=== PATIENT | male | born 1955 ===

== ENCOUNTER → 2022-05-24 09:40 | Outpatient (BNVA) | payer MEDICARE, MEDICAID, SELFPAY | PROVIDERS: PCP Internal Medicine; Visit Provider Urology | DX: N40.0 Benign prostatic hyperplasia without lower urinary tract symptoms (principal); R97.20 Elevated prostate specific antigen [PSA] | CPT/HCPCS: Q3014 ==

== ENCOUNTER 2023-04-19 16:09 | Outpatient (REF) | payer MEDICARE, MEDICAID, SELFPAY | END 2023-04-19 16:10 | disposition home or self-care (01) | LOC: HO.LAB 16:09 | PROVIDERS: Visit Provider Urology | DX: R97.20 Elevated prostate specific antigen [PSA] (principal); Z12.5 Encounter for screening for malignant neoplasm of prostate | CPT/HCPCS: 36415; 84153 ==

== ENCOUNTER 2023-05-25 10:42 | Outpatient (AMB) | payer MEDICARE, MEDICAID, SELFPAY ==
--- NOTE | 2023-05-25 10:47 | MHC.OFFVIS ---
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 They are a patient of Dr Lara. He is seen for the following urologic conditions. - lower urinary tract symptoms Yearly review PSA low Continues with finasteride Lower Urinary Tract Symptoms:? Current visit is for?Has been doing well ?Better control of urine ?Minimal nocturia ?PSA fallen since visit.? Current treatment includes?observation - no prior care.? Prostate Symptom Score?09/02 , Moderate (9-19), Bother 4.? Symptoms include?09/02 , incomplete emptying, weak stream, urgency, nocturia (>2), and are progressing.? Results from testing include? renal/bladder us ?Yes ? date ?08/26/2017 ? PVR ?60 ? prostate size ?30 ? PSA?09/02 10.9 - discussed risk of approx 15% for high risk prostate cancer. Given other comorbidities start with 5AR and repreat PSA ?01/30 PSA 2.1, 01/31 1.4, 02/01 1.9, 05/06 1.1, ? Testing at next visit will include?Prostate Symptom Score, bladder scan.? Continue medications. [facility] Medical History (Updated 05/24/22 @ 10:19 by Felipe Merlos MD) Hyperlipidemia HTN (hypertension) Chronic kidney disease BPH (benign prostatic hyperplasia) Nocturia Elevated PSA Review of Systems Const Denies chills and Denies fever(s) Card Reports no additional complaints and Denies syncope Resp Denies cough GI Denies abdominal pain and Denies heartburn Reports as per HPI and Denies change in libido Neuro Denies syncope Psych Denies change in libido Endo Denies change in libido Physical Exam Const General: cooperative, healthy appearing, comfortable and no acute distress Orientation/consciousness: patient oriented x3 HEENT Face and sinus: Yes normal facial exam Mouth: moist mucous membranes Neck Neck: Yes normal visual inspection, Yes full ROM and Yes trachea midline Chest Chest palpation & inspection: normal inspection of the chest Resp Effort & Inspection: normal respiratory effort, able to speak in complete sentences and no respiratory distress GI Inspection: Yes normal to inspection Back/Spine/Pelvis Cervical Spine: normal cervical lordosis Thoracic/Lumbar Spine: thoracic and lumbar spine normal to inspection Skin General skin exam: no rashes or lesions noted Neuro General: patient oriented x3, gait normal, tone normal and moves all extremities Extrem General: Yes normal to inspection and Yes capillary refill normal Office Procedures Post Void Residual Post Residual Void Post Void Residual (PVR): 0 [id number] Void Residual by ultrasound Assessment & Plan Assessment & Plan (1) Elevated PSA: Code(s): R97.20 - Elevated prostate specific antigen [PSA] (2) BPH (benign prostatic hyperplasia): Code(s): N40.0 - Benign prostatic hyperplasia without lower urinary tract symptoms Plan Twelve month follow-up PVR Orders: Orders AMB Post Void Residual by ultrasound Today N40.0 - Benign prostatic hyperplasia without lower urinary tract symptoms Patient Instructions: Imaging studies, laboratory and physical exam results were discussed and reviewed in detail. No major barriers to patient understanding were identified. An opportunity to ask questions regarding the treatment plan was provided. All questions were answered. The patient expressed understanding and agreement with the above treatment plan. The patient is aware they should contact our office by phone for worsening of their current condition or the appearance of new urologic symptoms. Compliance is encouraged with any medications and followup testing that is ordered. It is a privilege to participate in the urologic care of your patient. If you have any questions or concerns regarding treatment for the above conditions, or other urologic issues, please do not hesitate to contact me. The office telephone contact is [phone]. This note is constructed using voice recognition software. While every effort has been made to ensure accuracy interior horticulturist errors may have been included. Yours sincerely, Dr Felipe Merlos MD, [facility] - Urology Providers of Expert, Compassionate Care for the Genitourinary System Coding Level of Care Code Est Pt Level 4 (64406) Diagnoses Elevated PSA R97.20 BPH (benign prostatic hyperplasia) N40.0 CPT Codes Post Residual Void - PVR CPT Code: 34387-Rhru Void Residual by ultrasound ([id number])
== END 2023-05-25 11:10 | disposition home or self-care (01) ==
LOC: HO.HUSH 10:42
PROVIDERS: PCP Internal Medicine; Visit Provider Urology
DX: R97.20 Elevated prostate specific antigen [PSA] (principal); N40.0 Benign prostatic hyperplasia without lower urinary tract symptoms
CPT/HCPCS: 99213

== ENCOUNTER → 2023-05-25 10:42 | Outpatient (BNVA) | payer MEDICARE, MEDICAID, SELFPAY | PROVIDERS: PCP Internal Medicine; Visit Provider Urology | DX: R97.20 Elevated prostate specific antigen [PSA] (principal); N40.0 Benign prostatic hyperplasia without lower urinary tract symptoms | CPT/HCPCS: 51798; 99212 ==

== ENCOUNTER 2024-07-15 11:35 | Outpatient (AMB) | payer MEDICARE, MEDICAID, SELFPAY ==
--- NOTE | 2024-07-15 11:36 | A.OFFVIS_ITS ---
Intake Visit Reasons: 1y/PVR Intake Note: Patient presents today for follow up on: BPH and psa lab PSA: 1.12 Urology Medication:Finasteride Antibiotic Allergies: None Blood Thinners: None PVR: 18ml's Gunner'S Mate Required: No Accompanied by: caregiver Allergies No Known Allergies Allergy (Verified 07/16/24 14:58) Medication List - Last Reconciled 07/16/24 by JACOB Plummer- amlodipine 5 mg PO DAILY chlorthalidone 12.5 mg PO QAM cholecalciferol (vitamin D3) (D3-2000) 50 mcg PO DAILY finasteride 5 mg PO DAILY 90 days fluoxetine 40 mg PO DAILY lisinopril 15 mg PO DAILY metformin ER 1,000 mg PO BID multivitamin with folic acid 400 mcg (Daily-Isacc (with folic acid)) 1 tab PO DAILY omega 3-klx-tfw-fish oil 1,000 (120-180) mg 2 caps PO BID rosuvastatin 40 mg PO DAILY HPI Comments Details: Eriberto Mccullough is a very pleasant 68-year-old developmentally delayed male patient of Dr. Jackson who was accompanied by his caregiver at today's office visit. He has a past medical history of hyperlipidemia, hypertension, chronic kidney disease, BPH, nocturia, and elevated PSA. He presents to the office today for follow-up of his lower urinary tract symptoms. Much of today's history is provided by his caregiver as patient is developmentally delayed. He is able to answer basic yes or no questions throughout today's assessment. Caregiver and patient deny any bothersome urinary issues or concerns at this time. It appears patient is compliant with finasteride as prescribed. In office urinalysis results reviewed with the patient and his caregiver today. 2+ protein and 2+ microscopic hematuria otherwise within normal limits. Patient's caregiver reports patient has a history of following up with Nephrology in the past for proteinuria however has not been seen by a tacking machine operator in quite some time. We discussed referral for further assessment evaluation. We discussed at length potential causes of microscopic hematuria as well as further workup. Patient's caregiver denies patient to report any bothersome urinary issues. Recent PSA results reviewed with the patient and his caregiver today. PSAs are as follows: 05/06 1.1, 07/08 1.1 [facility] Medical History (Updated 07/15/24 @ 12:11 by JACOB [facility]) Hyperlipidemia HTN (hypertension) Chronic kidney disease BPH (benign prostatic hyperplasia) Nocturia Elevated PSA Review of Systems Const Unobtainable due to mental condition Physical Exam Const General: cooperative, healthy appearing, comfortable, no acute distress, well developed and alert Orientation/consciousness: oriented to person HEENT Head: Yes normal to inspection Eyes General: appearance normal, both eyes and all related structures Neck Neck: Yes normal visual inspection Chest Chest palpation & inspection: normal inspection of the chest Resp Effort & Inspection: normal respiratory effort Cardio Rate: regular rate GI Inspection: Yes normal to inspection General: Yes no CVA tenderness Back/Spine/Pelvis Back: no CVA tenderness Skin General skin exam: no rashes or lesions noted Neuro General: oriented to person Extrem General: Yes normal to inspection Psych Appearance: well kempt Speech and movement: Pressured speech present and Slowed movement present (Neuro) Attitude: cooperative Insight: Limited insight present (Psych) Judgement: Limited judgement present (Psych) Results AMB Urinalysis, Automated UA Leukoctes 0 Omayra/uL Last Edit by MetaIntell Jade on 07/15/24 12:21 UA Nitrite Last Edit by Wade Hansen on 07/15/24 12:21 UA Urobilinogen 0.2 mg/dL Last Edit by MeeGeniusroseline Hansen on 07/15/24 12:21 UA Protein 100 mg/dL Last Edit by SeaDragon Softwaresana on 07/15/24 12:21 UA pH 6.0 Last Edit by MetaIntell Jade on 07/15/24 12:21 UA Blood 80 Reid/uL Last Edit by MeeGeniuse Jade on 07/15/24 12:21 UA Specific [place] 1.030 Last Edit by FinesseOutfitteryroseline Hansen on 07/15/24 12:21 UA Ketone Last Edit by FinesseOutfitteryroseline Hansen on 07/15/24 12:21 UA Bilirubin 0 mg/dL Last Edit by Wade Hansen on 07/15/24 12:21 UA Glucose 0 mg/dL Last Edit by Wade Hansen on 07/15/24 12:21 Results Reviewed Results Reviewed: Laboratory Last Values Urine pH (Auto) 6.0 07/15/24 12:19 Specific [place] (Auto) 1.030 07/15/24 12:19 Urine Protein (Auto) 100 mg/dL 07/15/24 12:19 Glucose (UA)(Auto) 0 mg/dL 07/15/24 12:19 Urine Blood (Auto) 80 Reid/uL 07/15/24 12:19 Urine Bilirubin (Auto) 0 mg/dL 07/15/24 12:19 Urine Urobilinogen (Auto) 0.2 mg/dL 07/15/24 12:19 Leukocyte Esterase (Auto) 0 Omayra/uL 07/15/24 12:19 Assessment & Plan Assessment & Plan (1) Proteinuria: Code(s): R80.9 - Proteinuria, unspecified Category: Medical (2) BPH (benign prostatic hyperplasia): Code(s): N40.0 - Benign prostatic hyperplasia without lower urinary tract symptoms Category: Medical (3) Elevated PSA: Code(s): R97.20 - Elevated prostate specific antigen [PSA] Category: Medical Plan In office urinalysis results reviewed with the patient today; as noted above; will send for urine cytology. PVR 18 mL Recent PSA results reviewed with the patient and his dialysis tech today. Will refer to Nephrology for further assessment evaluation. Continue finasteride as discussed and prescribed. Patient and dialysis tech currently deny any bothersome urinary issues or concerns. He reports be happy with current voiding parameters. We discussed at length potential causes of microscopic hematuria as well as further workup in risks and benefits of these interventions; will continue with surveillance monitoring at this time. Will obtain PSA in 1 year. Follow-up in 1 year with PSA and PVR; or sooner with any issues, concerns, and or questions. Orders: Orders AMB Urinalysis Automated 07/15/24 Z13.9 - Encounter for screening, unspecified Urine Cytology 07/15/24 Z13.9 - Encounter for screening, unspecified Prostate Specific Antigen 05/20/24 N40.0 - Benign prostatic hyperplasia without lower urinary tract symptoms Prostate Specific Antigen 1 Year N40.0 - Benign prostatic hyperplasia without lower urinary tract symptoms Referrals Nephrology Referral R80.9 - Proteinuria, unspecified Patient Instructions: The patient had an opportunity to ask questions regarding the treatment plan. All questions were answered. Physical exam, labs, and imaging were discussed and reviewed in detail. As well as risks, benefits, and discussion of treatment choices. No major barriers to understanding were identified. The patient expressed understanding and agreement with the above treatment plan. The patient was made aware they should contact our office by phone for worsening of their current condition, the appearance of new symptoms, or with any questions or concerns. Compliance is encouraged with any medications and follow up testing that is ordered. It is a privilege to be allowed the opportunity to participate in? your urological care.? Again, if you have any questions or concerns If you have any questions or concerns please do not hesitate to contact me. The office is [phone]. This note is constructed using voice recognition software. While every effort has been made to ensure accuracy gas system operator errors may have been included. Yours sincerely, WILLIE Plummer Coding Level of Care Code Est Pt Level 3 (70607) Complex EM visit Add On G2211 Diagnoses Proteinuria R80.9 BPH (benign prostatic hyperplasia) N40.0 Elevated PSA R97.20
== END 2024-07-15 12:14 | disposition home or self-care (01) ==
PROVIDERS: PCP Internal Medicine; Visit Provider Nurse Practitioner Family
DX: Z13.9 Encounter for screening, unspecified (principal)
CPT/HCPCS: 99213; G2211

== ENCOUNTER 2024-07-15 11:35 | Outpatient (REF) | payer MEDICARE, MEDICAID, SELFPAY ==
[2024-07-15 15:13] LABS: Urine Cytology See Pathology rpt
== END 2024-07-15 11:36 | disposition home or self-care (01) ==
LOC: HO.LNP 11:35
PROVIDERS: PCP Internal Medicine; Visit Provider Nurse Practitioner Family
DX: R80.9 Proteinuria, unspecified (principal); R31.29 Other microscopic hematuria; N40.0 Benign prostatic hyperplasia without lower urinary tract symptoms; R97.20 Elevated prostate specific antigen [PSA]; Z79.899 Other long term (current) drug therapy
CPT/HCPCS: 51798; 81003; 88112; 99212